=== PATIENT | female | born 1965 | race Caucasian/White ===

== ENCOUNTER 2021-12-22 07:49 | Outpatient (REF) | payer BC, SELFPAY ==
[2021-12-22 11:47] LABS: Hematocrit 43.9 % (37.0-47.0); Hemoglobin 14.3 g/dl (12.0-16.0); Mean Corpuscular HGB Conc 32.6 g/dl (31.0-35.0); Mean Corpuscular Hemoglobin 30.7 pg (27.0-33.0); Mean Corpuscular Volume 94.2 fL (80.0-98.0); Mean Platelet Volume 9.8 fL (9.4-12.3); Platelet Count 319 X10*3/uL (160-400); Red Blood Count 4.66 X10*6/uL (4.20-5.50); Red Cell Distribution Width 12.5 % (11.0-16.0); White Blood Count 4.7 X10*3/uL (4.8-10.8)
[2021-12-22 11:51] LABS: Alanine Aminotransferase 18 U/L (0-31); Albumin Level 4.2 g/dL (3.5-5.0); Alkaline Phosphatase 83 U/L (39-117); Anion Gap 12 (12-20); Aspartate Amino Transferase 17 U/L (5-31); Bilirubin Total 1.1 mg/dL (0.0-1.0); Blood Urea Nitrogen 14 mg/dL (9-16); Calcium 9.7 mg/dL (8.4-10.2); Carbon Dioxide 30 mmol/L (22-29); Chloride 103 mmol/L (96-108); Cholesterol 222 mg/dL; Estimated Glomerular Filt Rate > 60; Glucose Fasting 105 mg/dL (60-99); HDL Cholesterol 70 mg/dL; LDL Cholesterol Calculated 121 mg/dl; Potassium 4.1 mmol/L (3.3-5.1); Sodium 141 mmol/L (135-145); Total Protein 6.8 g/dL (6.5-8.0); Triglycerides 159 mg/dL
[2021-12-22 12:20] LABS: Thyroid Stimulating Hormone 1.32 uIU/mL (0.32-4.0); Vitamin D 25-OH Total 30.9 ng/mL (>30)
== END 2021-12-22 07:50 | disposition home or self-care (01) ==
LOC: HO.MANLDS 07:49
PROVIDERS: PCP Internal Medicine; Visit Provider Internal Medicine
DX: I10 Essential (primary) hypertension (principal); E78.00 Pure hypercholesterolemia, unspecified
CPT/HCPCS: 36415; 80053; 80061; 82306; 84443; 85027

== ENCOUNTER → 2022-02-27 10:18 | Outpatient (REF) | payer BC, SELFPAY ==
--- NOTE | 2022-02-27 10:21 | CA_ITS ---
Transthoracic Echocardiogram Patient (Last, First, Middle): Alia Morrison, Gender: Female Date of : 1965 Age: 56 Procedure Date: 02/27/2022 Procedure Type: Transthoracic Echocardiogram Location: [facility] Height: 167.64 cm Weight: 108.41 kg BSA: 2.16 m2 Heart Rate: bpm BP: 130 / 85 mmHg Routing Equipment Tender: YR/TO Referring MD: Chavez Mojica MD Stamping Machine Operator: Gabo Ochoa MD Symptoms: R01.1 CARDIAC MURMUR Study Quality: Technically Difficult/ Contrast ECG Rhythm: Sinus Conclusions: - 1. Technically limited study despite use of contrast agent 2. Normal LV systolic function with grade 1 diastolic dysfunction 3. Mild aortic stenosis Findings Procedure Information Contrast agent, definity, is being given per protocol without apparent complications. Left Ventricle Normal left ventricular size, thickness, and systolic function. The visually estimated ejection fraction is between 60-65%. Spectral Doppler is indicative of an impaired relaxation filling pattern. E/E prime ratio is <8, consistent with normal filling pressures. Evidence suggests grade I (mild) diastolic dysfunction. Right Ventricle Normal right ventricular cavity size. Atria The left atrium is normal in size. Interatrial shunt cannot be excluded. The right atrium was not well visualized. Aortic Valve The aortic valve was not well visualized. There is mild calcification of the aortic valve. There is mild aortic valve stenosis. The mean gradient is 11 mmHg. The aortic valve area is 1.61 cm2. There is no aortic valve regurgitation. Mitral Valve The mitral valve was not well visualized. There is trace mitral valve regurgitation. There is no mitral valve stenosis. Pulmonic Valve The pulmonic valve was not well visualized. Tricuspid Valve The tricuspid valve was not well visualized. Tricuspid regurgitation envelope is inadequate for calculation of right ventricular systolic pressure. Great Vessels The aorta was not well visualized. The pulmonary artery was not well visualized. Venous The inferior vena cava is normal in size and collapses greater than 50% with inspiration. Pericardium/Pleural The pericardium was not well visualized. Prior Study Comparison No prior study available for comparison. Measurements 2D Linear Measurements IVSd: 0.86 0.6-0.9/0.6-1.0 cm LVIDd: 4.92 3.9-5.3/4.2-5.9 cm LVIDd Index: 2.28 2.4-3.2/2.2-3.1 cm/m2 LVIDs: 2.86 2.0-3.6 cm LVPWd: 0.82 0.7-1.1 cm LA Diam: 3.60 2.7-3.8/3.0-4.0 cm LAIDs Index: 1.67 1.5-2.3 cm/m2 LV Mass: 175.14 67-162/88-224 g LV Mass Index: 81.08 43-95/49-115 g/m2 LVOT Diam: 2.00 3.0+(-)1.3 cm 2D Systolic Function EF 4C: 62.90 >55% EF 2C: 61.80 >55% EF BiP: 61.80 >55% Mitral Valve MV Pk E: 0.67 MV PK A: 0.75 MV Decel Time: 258.00 E/A: 0.90 E'Lateral: 6.74 E'Medial: 7.29 E/E' Med: 9.10 E/E' Lat: 9.90 PHT: 76.00 MVA PHT: 2.89 Decel Edmonson: 2.58 Aortic Valve AoV Pk Mitchell: 2.25 AoV Mn Mitchell: 1.59 AoV VTI: 0.47 AoV Pk Grad: 20.00 Aov Mn Grad: 11.00 ALEJANDRINA Cont.VTI: 1.61 LVOT LVOT Pk Mitchell: 0.99 LVOT Mn Mitchell: 0.69 LVOT VTI: 0.24 LVOT Pk Grad: 4.00 LVOT Mn Grad: 2.00 LVOT Diam: 2.00 LVOT Area: 3.14 Diastolic Function MV Pk E: 0.67 MV Pk A: 0.75 E/A: 0.90 E'Medial: 7.29 E/E' Med: 9.10 E' Laterial: 6.74 E/E' Lat: 9.90 Right Ventricle TVS' Mitchell: 10.40 Tricuspid Valve RA Press: 3.00 Great Vessels Aorta Sinus of Valsalva: 3.11 2.0-3.5 cm Ao Asc: 3.30 2.1-3.4 cm Ao Arch: 3.00 Updated in Other Vendor System with Status of Final Gabo Ochoa MD electronically signed on 03/01/2022 1:01:52 PM with status of Final
== END ==
LOC: HO.CARD 10:18
PROVIDERS: Visit Provider Internal Medicine
DX: R01.1 Cardiac murmur, unspecified (principal)
CPT/HCPCS: 93306; Q9957

== ENCOUNTER 2022-04-15 12:45 | Outpatient (REF) | payer OTHER, SELFPAY ==
--- NOTE | ~2022-04-15 | MM_ITS ---
EXAMINATION: MM SCREENING DIGITAL BREAST TOMOSYNTHESIS, BILATERAL CLINICAL INFORMATION: Screening. Asymptomatic. Prior ehg-hv-mizvy mammography currently unavailable. The lifetime risk of breast cancer based on the Tyrer-Cuzick Model is 8%. COMPARISON: None. Radiology department will attempt to retrieve prior [id number]-wu-swhej exam to allow for comparison in an addendum report. TECHNIQUE: Digital mammography is performed in craniocaudal and mediolateral oblique views along with computer-aided detection (CAD). Digital breast tomosynthesis is performed in implant-displaced craniocaudal and implant-displaced mediolateral oblique views along with computer-aided detection (CAD). Synthesized 2D images are generated from the tomosynthesis. FINDINGS: There are scattered areas of fibroglandular density (ACR BI-RADS breast composition Category b). There are bilateral implants. The implant margins are smooth. Breast tissue composition borders on predominantly fatty. There is no significant mass or architectural abnormality or abnormal calcifications. The axilla and skin contours are unremarkable. MM/MM tomosynthesis screen imp BI IMPRESSION: No mammographic evidence of malignancy. ASSESSMENT: BI-RADS 1: Negative RECOMMENDATION: Routine annual mammography screening. This patient's information was entered into a reminder system with a target due date for their next mammogram.
== END 2022-04-15 12:46 | disposition home or self-care (01) ==
LOC: HO.MAMMO 12:45
PROVIDERS: PCP Internal Medicine; Visit Provider Internal Medicine
DX: Z12.31 Encounter for screening mammogram for malignant neoplasm of breast (principal)
CPT/HCPCS: 77063; 77067

== ENCOUNTER 2022-08-01 21:05 | Emergency (ER) | payer OTHER, SELFPAY ==
[2022-08-01 21:15] VITALS: BP 155/93; PULSE 80; RESP 18; TEMP 36.1; O2SAT 97; BMI 40.3
--- NOTE | 2022-08-01 21:21 | ECG_ITS ---
Test Reason : CHEST PAIN Blood Pressure : / mmHG Vent. Rate : 070 BPM Atrial Rate : 070 BPM P-R Int : 182 ms QRS Dur : 100 ms QT Int : 420 ms P-R-T Axes : 033 -21 020 degrees QTc Int : 453 ms Normal sinus rhythm late transition in v6 Intra-ventricular conduction delay Borderline ECG No previous ECGs available Referred By: Generic ED Physician Electronically Signed By:AVERY VASQUEZ MD
[2022-08-01 21:34] LABS: MANUAL DIFF FLAG NO
[2022-08-01 21:36] LABS: Basophils Percent Auto 0.5 % (0-2); Eosinophils Absolute Auto 0.1 X10*3/uL (0.0-0.4); Eosinophils Percent Auto 1.6 % (0-4); Hematocrit 42.6 % (37.0-47.0); Imm Gran Abs Auto 0.02 X10*3/uL (0.00-0.03); Imm Gran Pct Auto 0.3 % (0.0-0.4); Lymphocytes Absolute Auto 2.7 X10*3/uL (1.2-4.9); Lymphocytes Percent Auto 36.6 % (20-40); Mean Corpuscular HGB Conc 32.9 g/dl (31.0-35.0); Mean Corpuscular Hemoglobin 30.7 pg (27.0-33.0); Mean Corpuscular Volume 93.4 fL (80.0-98.0); Mean Platelet Volume 9.6 fL (9.4-12.3); Monocytes Absolute Auto 0.5 X10*3/uL (0.1-1.2); Monocytes Percent Auto 6.8 % (2-11); Neutrophils Percent Auto 54.2 % (45-73); Platelet Count 315 X10*3/uL (160-400); Red Blood Count 4.56 X10*6/uL (4.20-5.50); Red Cell Distribution Width 12.3 % (11.0-16.0); White Blood Count 7.5 X10*3/uL (4.8-10.8)
[2022-08-01 21:55] LABS: Alanine Aminotransferase 19 U/L (0-31); Albumin Level 4.4 g/dL (3.5-5.0); Alkaline Phosphatase 75 U/L (39-117); Anion Gap 16 (12-20); Aspartate Amino Transferase 18 U/L (5-31); Bilirubin Total 0.3 mg/dL (0.0-1.0); Blood Urea Nitrogen 26 mg/dL (9-16); Calcium 9.5 mg/dL (8.4-10.2); Carbon Dioxide 26 mmol/L (22-29); Chloride 101 mmol/L (96-108); Creatinine Clr Calc Pharmacy 101.7; Estimated Glomerular Filt Rate > 60; Glucose Random 111 mg/dL (60-115); Potassium 3.8 mmol/L (3.3-5.1); Sodium 139 mmol/L (135-145); Total Protein 6.8 g/dL (6.5-8.0)
[2022-08-01 21:58] LABS: Troponin-I High Sensitivity < 3.5 ng/L (<3.5-17.0)
[2022-08-02 00:11] VITALS: BP 136/73; PULSE 66; RESP 19; TEMP 36.7; O2SAT 97
--- NOTE | 2022-08-02 00:27 | ED.CHESTPAIN ---
HPI - Chest Pain General Chief Complaint: Chest Pain Stated Complaint: chest pain, high BP Time Seen by Provider: 08/01/22 23:41 Source: patient and family Mode of arrival: ambulatory History of Present Illness HPI narrative: 56-year-old female with history of hypertension and hyperlipidemia presents with onset of midsternal chest pain that radiated across her left chest and was rated as a 6/10, lasted 10 minutes and was not associated with any dizziness, diaphoresis, nausea, shortness of breath. Patient states she did receive an annoying e-mail and that she had finished eating approximally 30 minutes prior to the onset. She then took her blood pressure and noted that it was elevated. Patient also reports that she has had recent travel via airplane but denies any calf swelling or cigarette smoking. Patient is currently chest pain-free. Related Data Allergies Allergy/AdvReac Type Severity Reaction Status Date / Time No Known Allergies Allergy Verified 08/01/22 21:20 Review of Systems Review of Systems: Pertinent positives and negatives as stated in HPI 10 point review of systems otherwise negative. [facility] Past Medical History Source: nursing notes reviewed Social History Social History Advance Directives: No Advance Directives Information Provided: No Physical Exam Vital Signs: Vital Signs: Last Vital Signs Temp 98.0 F 08/02/22 00:11 Pulse 66 08/02/22 00:11 Resp 19 08/02/22 00:11 BP 136/73 08/02/22 00:11 Pulse Ox 97 08/02/22 00:11 O2 Del Method 08/02/22 00:11 BMI result Body Mass Index 40.3 VITAL SIGNS: Reviewed. GENERAL: Well developed, well nourished, in no acute distress. HEAD: Normocephalic/atraumatic EYES: PERRLA, EOMI EARS: Ext canals without abnormality OROPHARYNX: no oral lesions noted, posterior pharynx clear LUNGS: Normal breath sounds. No adventitious sounds or accessory muscle use. SpO2<97> CARDIOVASCULAR: Regular rate and rhythm without noted murmurs, no JVD or lower extremity edema. ABDOMEN: Soft, non-tender, non-distended with bowel sounds. MUSCULOSKELETAL: No tenderness, deformities, or effusions noted on gross inspection. EXTREMITIES: No cyanosis, clubbing or edema. SKIN: Inspection of the skin reveals no rashes NEUROLOGIC: Alert and oriented x 4. Strength and sensation to light touch were grossly intact x 4. Course Course Course Narrative: 56-year-old female with history and clinical presentation suggestive of possible ACS although she is asymptomatic at this time and has had a recent cardiac workup that included stress test and echocardiogram. On review of all investigations there are no acute findings but will obtain 2nd troponin, D-dimer, as well as COVID-19 testing. Low clinical suspicion for any gastritis/cholecystitis/pancreatitis. HEART Score: 3 On review investigations, that include serial troponins/D-dimer/COVID-19 testing there are no acute findings to better explain patient's symptoms. She was informed all results and she understands that she should follow-up with her primary care doctor as well as her consumer science teacher. She is otherwise discharged home in stable condition, continues to be asymptomatic for chest pain and otherwise hemodynamically stable. MDM - Chest Pain Lab Data Result diagrams: 08/01/22 21:30 08/01/22 21:30 Labs: Lab Results 08/01/22 08/01/22 08/01/22 Range/Units 21:30 21:30 21:30 WBC 7.5 (4.8-10.8) X10*3/uL RBC 4.56 (4.20-5.50) X10*6/uL Hgb 14.0 (12.0-16.0) g/dl Hct 42.6 (37.0-47.0) % MCV 93.4 (80.0-98.0) fL MCH 30.7 (27.0-33.0) pg MCHC 32.9 (31.0-35.0) g/dl RDW 12.3 (11.0-16.0) % Plt Count 315 (160-400) X10*3/uL MPV 9.6 (9.4-12.3) fL Immature Gran % (Auto) 0.3 (0.0-0.4) % Neut % (Auto) 54.2 (45-73) % Lymph % (Auto) 36.6 (20-40) % [place] % (Auto) 6.8 (2-11) % Eos % (Auto) 1.6 (0-4) % Baso % (Auto) 0.5 (0-2) % Lymph # (Auto) 2.7 (1.2-4.9) X10*3/uL [place] # (Auto) 0.5 (0.1-1.2) X10*3/uL Eos # (Auto) 0.1 (0.0-0.4) X10*3/uL Baso # (Auto) 0.0 (0.0-0.2) X10*3/uL Abs Immat Gran (auto) 0.02 (0.00-0.03) X10*3/uL Absolute Neuts (auto) 4.0 (2.0-8.3) x10*3/uL Absolute Nucleated RBC 0.000 (0.0-0.012) X10*3/uL Nucleated RBC % (auto) 0.0 (0.0-0.2) /100WBC D-Dimer High Sensitivty NG/ML Sodium 139 (135-145) mmol/L Potassium 3.8 (3.3-5.1) mmol/L Chloride 101 (96-108) mmol/L Carbon Dioxide 26 (22-29) mmol/L Anion Gap 16 (12-20) BUN 26 H D (9-16) mg/dL Creatinine 0.77 (0.5-1.4) mg/dL Estim Creat Clear Calc 101.7 Estimated GFR > 60 Random Glucose 111 (60-115) mg/dL Calcium 9.5 (8.4-10.2) mg/dL Total Bilirubin 0.3 (0.0-1.0) mg/dL AST 18 (5-31) U/L ALT 19 (0-31) U/L Alkaline Phosphatase 75 (39-117) U/L Troponin I High Sens < 3.5 (<3.5-17.0) ng/L Total Protein 6.8 (6.5-8.0) g/dL Albumin 4.4 (3.5-5.0) g/dL COVID-19 (YVES) (Negative) COVID-19 Clin Com 08/02/22 08/02/22 08/02/22 Range/Units 00:30 00:30 00:30 WBC (4.8-10.8) X10*3/uL RBC (4.20-5.50) X10*6/uL Hgb (12.0-16.0) g/dl Hct (37.0-47.0) % MCV (80.0-98.0) fL MCH (27.0-33.0) pg MCHC (31.0-35.0) g/dl RDW (11.0-16.0) % Plt Count (160-400) X10*3/uL MPV (9.4-12.3) fL Immature Gran % (Auto) (0.0-0.4) % Neut % (Auto) (45-73) % Lymph % (Auto) (20-40) % [place] % (Auto) (2-11) % Eos % (Auto) (0-4) % Baso % (Auto) (0-2) % Lymph # (Auto) (1.2-4.9) X10*3/uL [place] # (Auto) (0.1-1.2) X10*3/uL Eos # (Auto) (0.0-0.4) X10*3/uL Baso # (Auto) (0.0-0.2) X10*3/uL Abs Immat Gran (auto) (0.00-0.03) X10*3/uL Absolute Neuts (auto) (2.0-8.3) x10*3/uL Absolute Nucleated RBC (0.0-0.012) X10*3/uL Nucleated RBC % (auto) (0.0-0.2) /100WBC D-Dimer High Sensitivty < 150 NG/ML Sodium (135-145) mmol/L Potassium (3.3-5.1) mmol/L Chloride (96-108) mmol/L Carbon Dioxide (22-29) mmol/L Anion Gap (12-20) BUN (9-16) mg/dL Creatinine (0.5-1.4) mg/dL Estim Creat Clear Calc Estimated GFR Random Glucose (60-115) mg/dL Calcium (8.4-10.2) mg/dL Total Bilirubin (0.0-1.0) mg/dL AST (5-31) U/L ALT (0-31) U/L Alkaline Phosphatase (39-117) U/L Troponin I High Sens < 3.5 (<3.5-17.0) ng/L Total Protein (6.5-8.0) g/dL Albumin (3.5-5.0) g/dL COVID-19 (YVES) Negative (Negative) COVID-19 Clin Com See Note Discharge Plan Discharge Clinical Impression: Chest pain Patient Disposition: Home, Self-Care Instructions: Chest Pain (ED) Additional Instructions: 1. Resume all home medications as prescribed. 2. Please call the office of your primary care provider and consumer science teacher tomorrow morning/this morning to set up an appointment for re-evaluation further outpatient management. Return to the ER for worsening symptoms. Referrals: Chavez Mojica MD [Primary Care Provider] -
[2022-08-02 00:49] LABS: D Dimer High Sensitivity < 150 NG/ML
[2022-08-02 00:51] LABS: COVID-19 Test Negative (Negative); IDNOW Serial# 16C4AD1C
[2022-08-02 00:56] LABS: Troponin-I High Sensitivity < 3.5 ng/L (<3.5-17.0)
== END 2022-08-02 01:37 | disposition home or self-care (01) ==
PROVIDERS: Emergency Provider Student in an Organized Health Care Education/Training Program; PCP Internal Medicine
DX: R07.89 Other chest pain (principal); Z20.822 Contact with and (suspected) exposure to COVID-19; Z79.899 Other long term (current) drug therapy
CPT/HCPCS: 36415; 80053; 84484; 85025; 85379; 87635; 93005; 99283

== ENCOUNTER 2022-10-15 08:04 | Outpatient (REF) | payer OTHER, SELFPAY ==
[2022-10-15 11:23] LABS: MANUAL DIFF FLAG NO
[2022-10-15 11:28] LABS: Basophils Percent Auto 0.6 % (0-2); Eosinophils Absolute Auto 0.1 X10*3/uL (0.0-0.4); Eosinophils Percent Auto 2.5 % (0-4); Hematocrit 41.1 % (37.0-47.0); Hemoglobin 13.4 g/dl (12.0-16.0); Imm Gran Abs Auto 0.01 X10*3/uL (0.00-0.03); Imm Gran Pct Auto 0.2 % (0.0-0.4); Lymphocytes Absolute Auto 1.7 X10*3/uL (1.2-4.9); Lymphocytes Percent Auto 34.8 % (20-40); Mean Corpuscular HGB Conc 32.6 g/dl (31.0-35.0); Mean Corpuscular Hemoglobin 30.4 pg (27.0-33.0); Mean Corpuscular Volume 93.2 fL (80.0-98.0); Mean Platelet Volume 9.8 fL (9.4-12.3); Monocytes Absolute Auto 0.4 X10*3/uL (0.1-1.2); Monocytes Percent Auto 7.6 % (2-11); Neutrophils Absolute Auto 2.6 x10*3/uL (2.0-8.3); Neutrophils Percent Auto 54.3 % (45-73); Platelet Count 297 X10*3/uL (160-400); Red Blood Count 4.41 X10*6/uL (4.20-5.50); Red Cell Distribution Width 12.3 % (11.0-16.0); White Blood Count 4.9 X10*3/uL (4.8-10.8)
[2022-10-15 11:56] LABS: Estimated Average Glucose 108 mg/dL; Hemoglobin A1c % 5.4 %
[2022-10-15 12:21] LABS: Alanine Aminotransferase 19 U/L (0-31); Albumin Level 3.8 g/dL (3.5-5.0); Alkaline Phosphatase 80 U/L (39-117); Anion Gap 10 (12-20); Aspartate Amino Transferase 17 U/L (5-31); Bilirubin Total 0.7 mg/dL (0.0-1.0); Blood Urea Nitrogen 16 mg/dL (9-16); Calcium 8.8 mg/dL (8.4-10.2); Carbon Dioxide 29 mmol/L (22-29); Chloride 105 mmol/L (96-108); Cholesterol 193 mg/dL; Estimated Glomerular Filt Rate > 60; Glucose Random 101 mg/dL (60-115); HDL Cholesterol 59 mg/dL; LDL Cholesterol Calculated 111 mg/dl; Potassium 4.1 mmol/L (3.3-5.1); Sodium 140 mmol/L (135-145); Triglycerides 116 mg/dL
[2022-10-15 12:44] LABS: Free T4 (Free Thyroxine) 0.88 ng/dL (0.71-1.85); Thyroid Stimulating Hormone 1.21 uIU/mL (0.32-4.0); Vitamin D 25-OH Total 29.6 ng/mL (>30)
== END 2022-10-15 08:05 | disposition home or self-care (01) ==
LOC: HO.MANLDS 08:04
PROVIDERS: Visit Provider Physician Assistant
DX: R73.01 Impaired fasting glucose (principal); E55.9 Vitamin D deficiency, unspecified; R53.83 Other fatigue
CPT/HCPCS: 36415; 80053; 80061; 82306; 83036; 84439; 84443; 85025

== ENCOUNTER 2023-01-04 07:46 | Outpatient (REF) | payer OTHER, SELFPAY ==
[2023-01-04 11:17] LABS: MANUAL DIFF FLAG NO
[2023-01-04 11:47] LABS: Basophils Percent Auto 0.5 % (0-2); Eosinophils Absolute Auto 0.1 X10*3/uL (0.0-0.4); Eosinophils Percent Auto 1.4 % (0-4); Hematocrit 42.3 % (37.0-47.0); Hemoglobin 13.7 g/dl (12.0-16.0); Imm Gran Abs Auto 0.02 X10*3/uL (0.00-0.03); Imm Gran Pct Auto 0.4 % (0.0-0.4); Lymphocytes Absolute Auto 1.9 X10*3/uL (1.2-4.9); Lymphocytes Percent Auto 33.8 % (20-40); Mean Corpuscular HGB Conc 32.4 g/dl (31.0-35.0); Mean Corpuscular Volume 92.6 fL (80.0-98.0); Monocytes Absolute Auto 0.4 X10*3/uL (0.1-1.2); Monocytes Percent Auto 6.9 % (2-11); Neutrophils Absolute Auto 3.2 x10*3/uL (2.0-8.3); Platelet Count 325 X10*3/uL (160-400); Red Blood Count 4.57 X10*6/uL (4.20-5.50); Red Cell Distribution Width 12.4 % (11.0-16.0); White Blood Count 5.5 X10*3/uL (4.8-10.8)
[2023-01-04 12:44] LABS: Alanine Aminotransferase 15 U/L (0-31); Alkaline Phosphatase 71 U/L (39-117); Anion Gap 11 (12-20); Aspartate Amino Transferase 15 U/L (5-31); Bilirubin Total 0.9 mg/dL (0.0-1.0); Blood Urea Nitrogen 19 mg/dL (9-16); Calcium 9.2 mg/dL (8.4-10.2); Carbon Dioxide 30 mmol/L (22-29); Chloride 100 mmol/L (96-108); Cholesterol 167 mg/dL; Estimated Glomerular Filt Rate > 60; Glucose Fasting 94 mg/dL (60-99); HDL Cholesterol 56 mg/dL; LDL Cholesterol Calculated 87 mg/dl; Potassium 3.4 mmol/L (3.3-5.1); Sodium 138 mmol/L (135-145); Total Protein 6.4 g/dL (6.5-8.0); Triglycerides 124 mg/dL
[2023-01-04 12:49] LABS: Vitamin D 25-OH Total 43.9 ng/mL (>30)
== END 2023-01-04 07:47 | disposition home or self-care (01) ==
LOC: HO.MANLDS 07:46
PROVIDERS: Visit Provider Physician Assistant
DX: E78.00 Pure hypercholesterolemia, unspecified (principal); Z87.898 Personal history of other specified conditions
CPT/HCPCS: 36415; 80053; 80061; 82306; 85025

== ENCOUNTER 2023-06-14 07:33 | Outpatient (REF) | payer BC, SELFPAY ==
[2023-06-14 13:44] LABS: MANUAL DIFF FLAG NO
[2023-06-14 13:45] LABS: Basophils Percent Auto 0.6 % (0-2); Eosinophils Absolute Auto 0.1 X10*3/uL (0.0-0.4); Eosinophils Percent Auto 1.1 % (0-4); Hematocrit 43.2 % (37.0-47.0); Hemoglobin 14.2 g/dl (12.0-16.0); Imm Gran Abs Auto 0.01 X10*3/uL (0.00-0.03); Imm Gran Pct Auto 0.2 % (0.0-0.4); Lymphocytes Absolute Auto 1.6 X10*3/uL (1.2-4.9); Lymphocytes Percent Auto 29.2 % (20-40); Mean Corpuscular HGB Conc 32.9 g/dl (31.0-35.0); Mean Corpuscular Hemoglobin 30.6 pg (27.0-33.0); Mean Corpuscular Volume 93.1 fL (80.0-98.0); Mean Platelet Volume 9.6 fL (9.4-12.3); Monocytes Absolute Auto 0.4 X10*3/uL (0.1-1.2); Monocytes Percent Auto 7.3 % (2-11); Neutrophils Absolute Auto 3.4 x10*3/uL (2.0-8.3); Neutrophils Percent Auto 61.6 % (45-73); Platelet Count 330 X10*3/uL (160-400); Red Blood Count 4.64 X10*6/uL (4.20-5.50); Red Cell Distribution Width 12.3 % (11.0-16.0); White Blood Count 5.5 X10*3/uL (4.8-10.8)
[2023-06-14 14:13] LABS: Estimated Average Glucose 100 mg/dL; Hemoglobin A1c % 5.1 % (<6.0)
[2023-06-14 14:18] LABS: Alanine Aminotransferase 14 U/L (0-31); Albumin Level 4.1 g/dL (3.5-5.0); Alkaline Phosphatase 68 U/L (39-117); Anion Gap 11 (12-20); Aspartate Amino Transferase 15 U/L (5-31); Bilirubin Total 1.1 mg/dL (0.0-1.0); Blood Urea Nitrogen 15 mg/dL (9-16); Calcium 9.9 mg/dL (8.4-10.2); Carbon Dioxide 30 mmol/L (22-29); Chloride 100 mmol/L (96-108); Cholesterol 187 mg/dL (<200); Estimated Glomerular Filt Rate > 60; Glucose Random 82 mg/dL (60-115); HDL Cholesterol 59 mg/dL (>40); LDL Cholesterol Calculated 102 mg/dL (<100); Potassium 3.4 mmol/L (3.3-5.1); Sodium 138 mmol/L (135-145); Total Protein 6.9 g/dL (6.5-8.0); Triglycerides 131 mg/dL (<150)
[2023-06-14 14:24] LABS: Vitamin D 25-OH Total 64.3 ng/mL (>30)
== END 2023-06-14 07:34 | disposition home or self-care (01) ==
LOC: HO.MANLDS 07:33
PROVIDERS: Visit Provider Physician Assistant
DX: E78.2 Mixed hyperlipidemia (principal); E11.9 Type 2 diabetes mellitus without complications; E55.9 Vitamin D deficiency, unspecified
CPT/HCPCS: 36415; 80053; 80061; 82306; 83036; 85025

== ENCOUNTER 2023-07-16 09:11 | Outpatient (REF) | payer BC, SELFPAY ==
--- NOTE | ~2023-07-16 | MM_ITS ---
EXAMINATION: MM SCREENING DIGITAL BREAST TOMOSYNTHESIS, BILATERAL WITH BILATERAL IMPLANTS CLINICAL INFORMATION: Screening. Asymptomatic. The patient has had prior cosmetic breast surgery with bilateral, retropectoral silicone implant augmentation. COMPARISON: Mammography: This study is compared with the prior exams dating back to 2018. TECHNIQUE: Digital mammography is performed in craniocaudal and mediolateral oblique views along with computer-aided detection (CAD). Digital breast tomosynthesis is performed in implant-displaced craniocaudal and implant-displaced mediolateral oblique views along with computer-aided detection (CAD). Synthesized 2D images are generated from the tomosynthesis. FINDINGS: The breasts are almost entirely fatty (ACR BI-RADS breast composition Category a). There are mammographically intact, bilateral, retropectoral silicone breast implants. There are no significant masses, abnormal calcifications, or other abnormalities. MM/MM tomosynthesis screen imp BI IMPRESSION: No mammographic evidence of malignancy. ASSESSMENT: BI-RADS BI-RADS 1 - Negative RECOMMENDATION: Routine annual mammography screening. 1 year F/U This patient's information was entered into a reminder system with a target due date for their next mammogram.
== END 2023-07-16 09:12 | disposition home or self-care (01) ==
LOC: HO.MAMMO 09:11
PROVIDERS: PCP Physician Assistant; Visit Provider Physician Assistant
DX: Z12.31 Encounter for screening mammogram for malignant neoplasm of breast (principal)
CPT/HCPCS: 77063; 77067

== ENCOUNTER → 2023-07-16 09:15 | Outpatient (BNV) | payer BC, SELFPAY | PROVIDERS: PCP Physician Assistant; Visit Provider Radiology Diagnostic Radiology | DX: Z12.31 Encounter for screening mammogram for malignant neoplasm of breast (principal) | CPT/HCPCS: 77063; 77067 ==

== ENCOUNTER 2024-07-19 12:52 | Outpatient (REF) | payer BC, SELFPAY ==
--- NOTE | ~2024-07-19 | MM_ITS ---
EXAMINATION: MM SCREENING DIGITAL BREAST TOMOSYNTHESIS, BILATERAL CLINICAL INFORMATION: Screening. Asymptomatic. COMPARISON: Mammography: Comparison is made with relevant avialable priors. TECHNIQUE: Digital mammography is performed in craniocaudal and mediolateral oblique views along with computer-aided detection (CAD). Digital breast tomosynthesis is performed in implant-displaced craniocaudal and implant-displaced mediolateral oblique views along with computer-aided detection (CAD). FINDINGS: There are scattered areas of fibroglandular density (ACR BI-RADS breast composition Category b). Bilateral retropectoral implants are stable appearing. There are no significant masses, abnormal calcifications, or other abnormalities. MM/MM tomosynthesis screen imp BI IMPRESSION: There are no significant changes from prior study. ASSESSMENT: BI-RADS BI-RADS 2 - Benign Findings RECOMMENDATION: Routine annual mammography screening. 1 year F/U This patient's information was entered into a reminder system with a target due date for their next mammogram. Electronically signed by: Bettie Kay DO 08/01/2024 11:58 AM EDT
== END 2024-07-19 12:53 | disposition home or self-care (01) ==
LOC: HO.MAMMO 12:52
PROVIDERS: PCP Family Medicine; Visit Provider Family Medicine
DX: Z12.31 Encounter for screening mammogram for malignant neoplasm of breast (principal)
CPT/HCPCS: 77063; 77067

== ENCOUNTER → 2024-07-19 13:15 | Outpatient (BNV) | payer BC, SELFPAY | PROVIDERS: PCP Family Medicine; Visit Provider Internal Medicine | DX: Z12.31 Encounter for screening mammogram for malignant neoplasm of breast (principal) | CPT/HCPCS: 77063; 77067 ==

== ENCOUNTER 2025-09-18 12:15 | Outpatient (REF) | payer BC, SELFPAY ==
--- OUTSIDE RECORDS SUMMARY | 2024-08-16 11:05 | XMS_ITS | Encounter Summary ---
Author Organization [facility] [place] [address] Care Team Providers Care Network Program Manager Name Role Phone Micheal Fitzpatrick MD Primary Care Provider Encounter Details Date Type Department Care Team (Late st Contact Info) Description 08/16/2024 12:05 PM EDT Hospital Encounter TH HISTORIC ENCOUNTERS EASTERN CONVERSION ONLY Duong Adam MD [address] [place] [address] Social History Tobacco Use Types Packs/Day Years Used Date Smoking Tobacco: Never Smokeless Tobacco: Never Alcohol Use Standard Drinks/Week Comments Yes 0 (1 standard drink = 0.6 oz pur e alcohol) Comments Unknown Sex and Gender Information Value Date Recorded Sex Assigned at Not on file Legal Sex Female 6:52 PM EDT Gender Identity Not on file Sexual Orientation Not on file documented as of this encounter Last Filed Vital Signs Vital Sign Reading Time Taken Comments Blood Pressure 122/78 08/16/2024 12:37 PM EDT Pulse 87 08/16/2024 12:37 PM EDT Temperature - - Respiratory Rate - - Oxygen Saturation - - Inhaled Oxygen Concentration - - Weight 90.7 kg (200 lb) 08/16/2024 12:37 PM EDT Height 167.6 cm (5' 6 ) 08/16/2024 12:37 PM EDT Body Mass Index 32.28 08/16/2024 12:37 PM EDT documented in this encounter Progress Notes * Duong Adam MD - 08/16/2024 12:45 PM EDT Images from the original note were not included. Progress Notes by Duong Adam MD at 08/16/2024 12:45 PM Author: Duong Adam MD Service: -- Author Type: Physician Filed: 08/16/2024 1:42 PM Encounter Date: 08/16/2024 Status: Signed Fastener Technologist: Duong Adam MD (Physician) SUBJECTIVE: The patient comes in for a follow-up for my apologies Hernandez I usually try to do it within the room with the patient very rarely happens. Recently had only 1 I think please much more sensitive who is working hard on losing weight managing risk factors for coronary artery disease and has no symptoms of exertional chest discomfort. Patient denies any symptoms of PND, orthopnea, palpitations, syncope, presyncopal symptoms, pedal edema or claudication. Patient's past med history significant for hypertension, hyperlipidemia, obesity, gestational diabetes, COVID infection, coronary calcifications, systolic heart murmur, aortic valve stenosis, herpes labialis and abnormal Pap smear. Patient's family history significant for congestive heart failure, hypertension, diabetes, pancreatic cancer, prostate cancer, lymphoma and mesothelioma. Patient past surgical history significant for right rotator cuff tendinitis and hammertoe of right foot. OBJECTIVE: Vitals: height is 5' 6 (1.676 m) and weight is 90.7 kg (200 lb). Her blood pressure is 122/78 and her pulse is 87. Her oxygen saturation is 96%. Body mass index is 32.28 kg/m??. Filed Weights 08/16/24 1237 Weight: 90.7 kg (200 lb) Admission Weight: Review of system: ?Cardiovascular ?Neurological ? - + [x] [] Chest Discomfort [x] [] Palpitations [x] [] Fainting [] [x] High Blood Pressure [] [x] Shortness of Breath [] [x] Cholesterol [x] [] Orthopnea or PND [x] [] Edema - + [x] [] Numbness [x] [] Visual Disturbance [x] [] Weakness [x] [] Vertigo [x] [] Sleep Disorder [x] [] Speech [x] [] Seizure - + [] [] Impotence [] [] Urinary Frequency [] [] Incontinence [] [] Menstrual Irregularity [] [] Bloody Urine [] [] Painful Urination ?Respiratory ?Musculoskeletal ?GI - + [x] [] Cough [x] [] Hemoptysis [x] [] Difficulty Breathing [x] [] Pleuritic Pain [x] [] Fever [x] [] Wheezing - + [] [x] Swollen or Painful Joints [x] [] Claudication [x] [] Edema [x] [] Myalgia [x] [] Injury - + [] [] Indigestion [] [] Pain [] [] Bloody Stools [] [] Constipation [] [] Diarrhea ?Eyes ?E-N-T ?Endocrine - + [x] [] Blurred Vision [x] [] Double Vision [x] [] Amaurosis - + [x] [] Nose Bleed [x] [] Difficulty Swallowing [x] [] Difficulty Hearing [x] [] Tinnitus - + [] [] Diabetes [] [] Weight Gain [] [] Weight Loss [] [] Hyperthyroid ?Head ?Neck ?Skin - + [x] [] Jaw Pain [x] [] Headache [x] [] Injury - + [x] [] Swelling [x] [] Pain - + [] [] Rash [] [] Itching [] [] Bruising ?Psychiatric ?Allergies - + [x] [] Depression [x] [] Anxiety - + [] [] Environmental [] [] Drug [] No Change since 08/19/2014 Comments: [] Past Medical History Reviewed: Past Medical History: Diagnosis Date ? Aortic valve stenosis ? Diabetes mellitus, type II (HCC) ? Gestational diabetes ? Heart murmur, systolic ? Herpes labialis ? Hyperlipidemia ? Hypertension ? Obesity ? Osteoarthritis ? Vitamin D deficiency Past Surgical History Reviewed: Past Surgical History: Procedure Laterality Date ? APPENDECTOMY ? CARDIAC CATHETERIZATION N/A 07/27/2024 Procedure: LEFT HEART CATHETERIZATION PCI; Surgeon: Maurilio Reza DO; Location: [facility]; Service: Cardiology; Laterality: N/A; ? CARDIAC CATHETERIZATION N/A 07/27/2024 Procedure: CORONARY ANGIOGRAPHY; Surgeon: Maurilio Reza DO; Location: [facility]; Service: Cardiology; Laterality: N/A; ? CARPAL TUNNEL RELEASE Bilateral ? COMBINED AUGMENTATION MAMMAPLASTY AND ABDOMINOPLASTY ? EXPLORATORY LAPAROTOMY Family / Social History Reviewed: No family history on file. Social History Socioeconomic History ? Marital status: Spouse name: Not on file ? Number of children: Not on file ? Years of education: Not on file ? Highest education level: Not on file Occupational History ? Not on file Tobacco Use ? Smoking status: Never ? Smokeless tobacco: Never Substance and Sexual Activity ? Alcohol use: Yes Comment: socially ? Drug use: Never ? Sexual activity: Not on file Other Topics Concern ? Not on file Social History Narrative ? Not on file Social Determinants of Health Financial Resource Strain: Not on file Food Insecurity: Not on file Transportation Needs: Not on file Social Connections: Not on file Housing Stability: Not on file Allergies Reviewed: No Known Allergies Scheduled Medications Reviewed: Current Outpatient Medications Medication Sig Dispense Refill ? aspirin EC 81 MG tablet Take 1 tablet (81 mg total) by mouth every night at bedtime. ? losartan-hydrochlorothiazide (HYZAAR) 50-12.5 MG per tablet Take 1 tablet by mouth daily. ? rosuvastatin (CRESTOR) tablet 20 mg Take 1 tablet (20 mg total) by mouth every other day. ? valACYclovir (VALTREX) 500 MG tablet Take 1 tablet (500 mg total) by mouth daily as needed. ? Wegovy 2.4 MG/0.75ML SOAJ subcutaneous auto-injector Inject 0.75 mL (2.4 mg total) under the skinonce a week. Patient stated she takes this medication on Mondays No current facility-administered medications for this visit. Physical Exam: *Eyes ?? Arcus Negative ?Xanthelasma Negative ?Lid Lag Negative ?Exopthalmus Negative ?Conjuntivae Normal ?Fundi Not examined Comments: *Ears, Nose, Mouth and Throat ?Teeth/Dentures Normal ?Mucosa: Pallor Negative ?Cyanosis Negative Comments: *Neck ?Thyroid [x] Normal [] Enlarged [] Nodules ?Jugular Veins Normal Comments: *Respiratory ?A-P Diam Normal Effort: [x] Normal Lungs Clear to auscultation and percussion Comments: *Cardiovascular ?Palpation PMI Normal Lift Negative Thrill Negative ?Auscultation Rhythm [x] Regular Murmur Negative [] S1 Normal S2 Normal S3 Negative S4 Negative Click Negative Examination of ?Carotids (R) Normal (L) Normal[] Bruits None ?Abdominal aorta Normal [] Bruits Negative [] ?Femoral (R) 4/4 (L) 4/4 Bruits Negative ?Radial arteries (R) 4/4 (L) 4/4 ?Pedal pulses DP (R) 4/4 (L) 4/4 PT (R) 4/4 (L) 4/4 ?Edema Negative Varicosities Negative Comments: *Gastrointestinal ?Examination of ?Abdomen Soft, active bowel sounds, nontender ?Liver Not palpable Spleen Not palpable ?[] Obtain Stool sample (Patients who are considered for thrombolytic and anticoagulant therapy) Comments: *Musculoskeletal ?Back: Kyphosis Negative [] Scoliosis Negative ?Gait Normal Tendons Normal ?Muscle Strength Normal Comments: *Extremities ?Nails Normal Clubbing Negative Lesions Negative Cyanosis Negative Edema Negative Comments: *Skin ?Stasis dermatitis Negative Xanthomas Negative Ulcers Negative Comments: *Neurological ?Orientation X3 DTR Normal Gait Normal ?Mood Normal [] Strength Normal Comments: Labs Reviewed: Lab Results Component Value Date WBC 5.7 07/19/2024 RBC 4.60 07/19/2024 MCV 92.5 07/19/2024 MCH 31.4 07/19/2024 MCHC 33.9 07/19/2024 RDW 12.9 07/19/2024 PLTCOUNT 308 07/19/2024 MPV 8.2 07/19/2024 NEUTROPHILS 64.2 07/19/2024 LYMPHOCYTES 28.4 07/19/2024 EOSINOPHILS 1.1 07/19/2024 BASOPHILS 0.4 07/19/2024 NEUTROPHABSO 3.7 07/19/2024 LYMPHOCYABSO 1.6 07/19/2024 MONOCYTABSOL 0.3 07/19/2024 EOSINOPHIABS 0.1 07/19/2024 BASOPHILSABS 0.0 07/19/2024 Lab Results Component Value Date BUN 19 (H) 07/19/2024 CREATININE 0.7 07/19/2024 NA 139 07/19/2024 K 4.3 07/19/2024 CL 100 07/19/2024 CO2 30 07/19/2024 CALCIUM 9.4 07/19/2024 Labs: April 2024 Cholesterol 203, HDL 63, triglycerides 144, LDL 109, hemoglobin A1c 5.5%, high- sensitivity CRP 5.1,TSH 1.59, Diagnostics Data Reviewed: EK07/25/24 Cardiac catheterization: July 27, 2024 ?? Left main: 0 ?? Left anterior descending: mid 30-40, mid diagonal 40-50 ?? Circumflex: 0 ?? Right coronary artery: prox BARTENDER. Distal vessel fills by L-R collaterals? LVEDP: 17 mmhg yes, thank you new patient what happened to her yeah already here Plan: ?? Med Rx Tests Ordered: [x ] Chem-18, lipid profile, glycohemoglobin, TSH. [x] Echocardiogram Assessment: Patient is a 58 y.o. female who had Agatston coronary score of more than thousand, has history of hypertension, mild obstructive sleep apnea, hyperlipidemia and DM type II, class II obesity, and CTA was significant for RCA more than 90% stenosis, LAD 50 to 70% stenosis, on a coronary angiogram found to have LAD mid 30 to 40%, mid diagonal 40 to 50% and BARTENDER of RCA with [id number] collaterals, clinically appears euvolemic and has no symptoms of angina or CHF. Plan: ?? Patient will be continued on current medications. ?? Chem-18, lipid file, hemoglobin A1c on annual basis and lipid profile/LFTs 90 days after change of statin dose. ?? Echocardiogram recommended in view of patient's 100% loaded RCA for evaluation of LV function. ?? I discussed with patient's goal, body mass index less than 25 kg/m??, LDL less than 70 mg/dL, blood pressure less than 120/80 mmHg and if the patient can tolerate and is not able to reduce body mass index he may benefit from CPAP. ?? Risk stratification, lifestyle modifications were discussed and recommended. ?? Patient was advised to reduce caloric intake, observe portion controlled strictly, avoid sodium and salt intake, exercise a regular basis to reduce weight for optimization of BMI for cardiovascular preventive purposes. Patient was encouraged to increase high-fiber diet with increase intake of fruits and vegetables, olive oil, beans, nuts, legumes as tolerated unless contraindicated in in the diet and avoid processed food/carbonated beverages for preventive purposes. ?? Patient was advised to call us to check on his blood work-up or other diagnostic studies if not hear back from us to discuss the results and findings and plan of care. ?? Follow-up in 4-6 months or earlier if patient develops new symptoms or current symptoms get worse. ?? All questions answered up to patient's satisfaction and explained extensively with drawing pictures. ?? Further recommendation per evaluation of diagnostic studies. Duong Adam MD, FACC., FASNC., FCPS., FACP. [facility], [facility] [phone]. 12:07 PM EDT1 This dictation was performed using voice recognition software. Word substitution may have occurred and may have gone unnoticed and uncorrected. documented in this encounter Plan of Treatment Not on file documented as of this encounter Visit Diagnoses Not on filedocumented in this encounter Care Teams Network Program Manager Relationship Specialty Start Date End Date Micheal Fitzpatrick MD PCP - General 07/30/24 documented as of this encounter
--- NOTE | ~2025-09-18 | MM_ITS ---
EXAMINATION: MM SCREENING DIGITAL BREAST TOMOSYNTHESIS, BILATERAL CLINICAL INFORMATION: Screening. Asymptomatic. COMPARISON: Comparison made to multiple prior, most recent July 19, 2024, and most remote May 29, 2020. TECHNIQUE: Digital breast tomosynthesis is performed in mediolateral oblique and craniocaudal views along with computer-aided detection (CAD). Digital breast tomosynthesis is performed in implant-displaced craniocaudal and implant-displaced mediolateral oblique views along with computer-aided detection (CAD). Synthesized 2D images are generated from the tomosynthesis. FINDINGS: BREAST COMPOSITION: There are scattered areas of fibroglandular density. BILATERAL BREASTS: Bilateral retropectoral silicone implants appear mammographically intact. No significant masses, suspicious calcifications or other abnormalities are seen in either breast. MM/MM tomosynthesis screen imp BI IMPRESSION: BILATERAL BREASTS: Benign, no mammographic evidence of malignancy. Normal interval follow-up is recommended in 12 months. ASSESSMENT: BI-RADS: Category 2: Benign RECOMMENDATION: Routine annual mammography screening. FOLLOW-UP: 1 year F/U This examination should not preclude the clinical evaluation of a suspicious palpable abnormality. This patient's information was entered into a reminder system with a target due date for their next mammogram. Electronically signed by: Hamilton Horton MD 09/19/2025 09:20 AM [facility]
--- NOTE | ~2025-09-18 | MM_ITS ---
EXAMINATION: DXA BONE DENSITY AXIAL HISTORY: PERIMENOPAUSAL TECHNIQUE: Exterity Dual energy absorptiometry (DEXA) of the lumbar spine, total left hip, and femoral neck was performed. COMPARISON: There are no prior studies for comparison. FINDINGS: The bone mineral density of the lumbar spine is 0.872 g/cm2, corresponding to a T-score of -2.6, and a Z-score of -2.1. This is indicative of osteoporosis. The bone mineral density of the left total hip is 0.807 g/cm2, corresponding to a T-score of -1.6, and a Z-score of -1.2. This is indicative of osteopenia. The bone mineral density of the left femoral neck is 0.733 g/cm2, corresponding to a T-score of -2.2, and a Z-score of -1.5. This is indicative of osteopenia. MM/XR DEXA axial skeleton IMPRESSION: Based on bone mineral density, and according to World Health Organization (WHO) criteria, the diagnosis is consistent with osteoporosis. Statistically, 68% of repeat scans fall within 1 SD (+/- 0.010 g/cm2 for AP spine L1-L4) and 1 SD (+/- 0.012 g/cm2 for femur total) FRAX is a trademark of the [employer] [place] [employer] Met[employer], a World Health Organization (WHO) Collaborating Center. Electronically signed by: Parish Herrera MD 09/18/2025 01:12 PM [facility]
--- OUTSIDE RECORDS SUMMARY | 2025-09-18 14:33 | XMS_ITS | Encounter Summary ---
Author Organization [facility] Address [address] [place] [id number] Phone Care Team Providers Care Container Repairer Name Role Phone Radha Browning MD Primary Care Provider [phone] Chavez Mojica DO Primary Care Provider Micheal Fitzpatrick MD Primary Care Provider [phone] Chavez Mojica DO Unavailable Reason for Referral * Outpatient Procedure - Closed Specialty Diagnoses / Procedures Referred By Yvonne mena Referred To Contact Diagnoses Cardiac murmur, unspecified Procedures Adult Echo TTE Chavez Mojica DO Phone: tel: fax: [email or web address] Referral ID Status Reason Start Date Expiration Date Visits Re quested Visits Authorized [id number] Closed 12/14/2021 12/14/2022 1 1 Encounter Details Date Type Department Care Team (Late st Contact Info) Description 12/14/2021 Transcribe Orders Virtual Department [address] [place] [address] Chavez Mojica DO [address] [facility] [place] [address] [email or web address] Cardiac murmur, unspecified Social History Tobacco Use Types Packs/Day Years Used Date Smoking Tobacco: Never Smokeless Tobacco: Never Alcohol Use Standard Drinks/Week Comments Yes 0 (1 standard drink = 0.6 oz pur e alcohol) Occasional Comments Unknown Sex and Gender Information Value Date Recorded Sex Assigned at Not on file Legal Sex Female 6:32 PM EST Gender Identity Not on file Sexual Orientation Not on file documented as of this encounter Plan of Treatment Upcoming Encounters Date Type Department Care Team (Late st Contact Info) Description 05/14/2026 4:30 PM EDT Office Visit [facility] [address] [facility], 5[address], [address] [place] [address] Stephanie Rivero MD, PhD [address] [facility] [address] [place] [address] [email or web address] Scheduled Orders Name Type Priority Associated Diagnoses Orde r Schedule Adult Echo TTE Echocardiography Routine Cardiac murmur, unspecified Expected: 12/14/2021, Expires: 12/14/2022 documented as of this encounter Visit Diagnoses Diagnosis Cardiac murmur, unspecified documented in this encounter Care Teams Container Repairer Relationship Specialty Start Date End Date Radha Browning MD [address] [place] [address] PCP - General Family Medicine 09/04/21 10/19/22 Chavez Mojica DO [address] [place] [address] [email or web address] PCP - General Internal Medicine 10/20/22 12/19/23 Micheal Fitzpatrick MD [address] [address] PCP - General Family Medicine 12/20/23 Chavez Mojica DO [address] [facility] [address] [place] [address] [email or web address] Insurance Assigned Provider 06/22/25 documented as of this encounter Additional Source Comments The information contained in this document represents components of the legal health record. It is not the complete legal health record.[facility]
--- OUTSIDE RECORDS SUMMARY | 2025-09-18 14:33 | XMS_ITS | Clinical Summary ---
Author Organization [facility] Prior to 03/16/[address] [place] [address] Care Team Providers Care Fine Craft Artist Name Role Phone Micheal Fitzpatrick MD Primary Care Provider Unava ilable Allergies No known active allergies Medications Medication Sig Dispensed Refills Start Date End Date Status losartan-hydrochlorot hiazide (HYZAAR) 50-12.5 MG per tablet Take 1 tablet by mouth daily. 0 07/17/2024 Active rosuvastatin (CRESTOR) tablet 20 mg Take 2 tablets (40 mg total) by mouth every other day. 0 05/29/2024 Active Wegovy 2.4 MG/0.75ML SOAJ subcutaneous auto-injector Inject 0.75 mL (2.4 mg total) under the skin once a week. Patient stated she takes this medication on Mondays 0 07/11/2024 Active valACYclovir (VALTREX) 500 MG tablet Take 1 tablet (500 mg total) by mouth daily as needed. 0 Active aspirin EC 81 MG tablet Take 1 tablet (81 mg total) by mouth every night at bedtime. 0 Active Active Problems Problem Noted Date Diagnosed Date Coronary artery disease 08/16/2024 Gestational diabetes mellitus (GDM), antepartum 08/16/2024 Class 2 severe obesity due t o excess calories with serious comorbidity and body mass index (BMI) of 35.0 to 35.9 in adult 08/16/2024 Essential hypertension, benign 08/16/2024 Mixed hyperlipidemia 08/16/2024 Family History Medical History Relation Name Comments Lymphoma Brother Cancer Father Diet at age of 78, had mesothelioma, prostate and pancreatic cancer Hypertension Father Alzheimer's disease Mother at age of 77. Heart failure Mother Hypertension Sister Relation Name Status Comments Brother Father Mother Sister Social History Tobacco Use Types Packs/Day Years Used Date Smoking Tobacco: Never Passive Smoke Exposure: Past Smokeless Tobacco: Never Alcohol Use Standard Drinks/Week Comments Yes 0 (1 standard drink = 0.6 oz pur e alcohol) socially Sex and Gender Information Value Date Recorded Sex Assigned at Female 07/24/2024 8:49 AM EDT Gender Identity Not on file Sexual Orientation Not on file Job Start Date Occupation Industry Not on file Not on file Not on file Last Filed Vital Signs Vital Sign Reading Time Taken Comments Blood Pressure 122/78 08/16/2024 12:37 PM EDT Pulse 87 08/16/2024 12:37 PM EDT Temperature 37.1 C (98.7 F) 07/27/2024 9:28 AM EDT Respiratory Rate 19 07/27/2024 1:00 PM EDT Oxygen Saturation 96% 08/16/2024 12:37 PM EDT Inhaled Oxygen Concentration - - Weight 90.7 kg (200 lb) 08/16/2024 12:37 PM EDT Height 167.6 cm (5' 6 ) 08/16/2024 12:37 PM EDT Body Mass Index 32.28 08/16/2024 12:37 PM EDT Plan of Treatment Health Maintenance Due Date Last Done Comments Hepatitis C Screening 1963 Depression Screening 1975 BMI Counseling 1981 Preventative Health Evaluation 1981 Cervical Cancer Screening (Pap Smear) 1984 Colon Cancer Screening (Colonoscopy) 2008 Breast Cancer Screening (Mammogram) 2013 Shingrix-Zoster Vaccine (1 of 2) 2013 COVID-19 Vaccine ( season) 2025 01/03/2022, 08/06/2021, 01/03/2021, Additional history exists Influenza Vaccine (#1) 2025 07/28/2021 DTap / Tdap / Td (2 - Td or Tdap) 12/19/2033 12/20/2023 RSV Adult > 60+ Yrs or (1 - 1-dose 75+ series) 2038 Hepatitis B Vaccines Aged Out No long er eligible based on patient's age to complete this topic Pneumococcal Vaccine Aged Out No long er eligible based on patient's age to complete this topic RSV Ped < 20 months Aged Out No longe r eligible based on patient's age to complete this topic Advance Directives For more information, please contact: [phone] Documents on File Type Date Recorded Patient Cotton Roll Packer Expl anation Advance Directive and Living Will 07/27/2024 Advance Directive and Living Will 07/27/2024 Latest Code Status on File Code Status Date Activated Date Inactivated Comments Full Code 07/27/2024 11:06 AM 07/27/2024 7:35 PM Th is code status was ascertained in the following way: discussion with patient . Code Status History Code Status Date Activated Date Inactivated Comments Full Code 07/27/2024 9:01 AM 07/27/2024 11:06 AM Th is code status was ascertained in the following way: per written order . Care Teams Fine Craft Artist Relationship Specialty Start Date End Date Micheal Fitzpatrick MD PCP - General Family Medicine 07/24/24
--- OUTSIDE RECORDS SUMMARY | 2025-09-18 14:33 | XMS_ITS | Clinical Summary ---
Author Organization [facility] Address [address] [place] [address] Care Team Providers Care Bridge Design Engineer Name Role Phone Micheal Fitzpatrick MD Primary Care Provider [phone] Allergies No known active allergies Medications aspirin 81 mg EC tablet Take 1 tablet (81 mg total) by mouth every night at bedtime. Active losartan-hydroC HLOROthiazide (HYZAAR) 50-12.5 mg per tablet Take 1 tablet by mouth 1 (one) time each day. 4 Active rosuvastatin (CRESTOR) 20 mg tablet Take 2 tablets (40 mg total) by mouth every other day. 4 Active semaglutide (Wegovy) 2.4 mg/0.75 mL injection pen Inject 0.75 mL (2.4 mg total) under the skin once a week. Patient stated she takes this medication on Mondays 4 Active valACYclovir (VALTREX) 500 mg tablet Take 1 tablet (500 mg total) by mouth daily as needed. Active Active Problems Problem Noted Date Diagnosed Date Coronary artery disease 08/16/2024 Essential hypertension, benign 08/16/2024 Gestational diabetes mellitus (GDM), antepartum 08/16/2024 Mixed hyperlipidemia 08/16/2024 Class 2 severe obesity due t o excess calories with serious comorbidity and body mass index (BMI) of 35.0 to 35.9 in adult 08/16/2024 Immunizations Immunization Administration Dates Next Due Virtual Web SARS-CoV-2 COVID-19, mRNA, LNP-S, preservative free 01/03/2021,12/13/2020 Surgical History Surgery Date Site/Laterality Comments OTHER SURGICAL HISTORY PROCEDURE:COMBINED AUGMENTATION MAMMAPLASTY AND ABDOMINOPLASTY CARPAL TUNNEL RELEASE Bilateral PROCEDURE:CARPAL TUNNEL RELEASE APPENDECTOMY PROCEDURE:APPENDECTOMY EXPLORATORY LAPAROTOMY PROCEDURE:EXPLORATORY LAPAROTOMY CARDIAC CATHETERIZATION 07/27/2024 N/A PROCEDURE:CARDIAC CATHETERIZATION;COMMENT:Procedure: LEFT HEART CATHETERIZATION PCI; Surgeon: Maurilio Reza DO; Location: [facility] C[facility]IAC F[facility] PAINTER; Service: Cardiology; Laterality: N/A; CARDIAC CATHETERIZATION 07/27/2024 N/A PROCEDURE:CARDIAC CATHETERIZATION;COMMENT:Procedure: CORONARY ANGIOGRAPHY; Surgeon: Maurilio Reza DO; Location: [facility] CARDIAC FACE PAINTER; Service: Cardiology; Laterality: N/A; Medical History Medical History Date Comments Hypertension DX:Hypertension Hyperlipidemia DX:Hyperlipidemi a Obesity DX:Obesity Gestational diabetes DX:Gestatio nal diabetes Heart murmur, systolic DX:Heart murmur, systolic Aortic valve stenosis DX:Aortic valve stenosis Herpes labialis DX:Herpes labial is Vitamin D deficiency DX:Vitamin D deficiency Osteoarthritis DX:Osteoarthriti s Diabetes mellitus, type II ( [facility] V24, [facility] V28) DX:Diabetes mellitus, type I I ([facility]) Social History Tobacco Use Types Packs/Day Years Used Date Smoking Tobacco: Never Smokeless Tobacco: Never Alcohol Use Standard Drinks/Week Comments Yes 0 (1 standard drink = 0.6 oz pur e alcohol) Comments Unknown Sex and Gender Information Value Date Recorded Sex Assigned at Not on file Legal Sex Female 6:52 PM EDT Gender Identity Not on file Sexual Orientation Not on file Obstetrics History Last Filed Vital Signs Vital Sign Reading [...] Health Maintenance Due Date Last Done Comments Breast Cancer Screening 1963 Colorectal Cancer Screening: Colonoscopy 1963 Cervical Cancer Screening: P ap Smear 1984 Pneumococcal Vaccine: 50+ Years (1 of 1 - PCV) 2013 RSV Immunization Adult Patients (1 - Risk 50-74 years 1-dose series) 2013 Zoster Vaccines (1 of 2) 2013 Cholesterol Screening (Lipid Panel) 08/12/2024 HIV Screening 08/12/2024 Hepatitis C Screening 08/12/2024 Social Influencers of Health Screening 08/12/2024 Depression Screening 10/17/2024 COVID-19 Vaccine (3 - 2024-2 6 season) 2025 01/03/2021, 12/13/2020 Influenza Vaccine (#1) 2025 07/28/2021 Hypertension/CHF/CAD Annual BMP Blood Test 07/19/2025 07/19/2024, 07/19/2024, 07/19/2024 DTaP,Tdap,and Td Vaccines (2 - Td or Tdap) 12/19/2033 12/20/2023 HIB Vaccines Aged Out No longer eligi ble based on patient's age to complete this topic HPV Vaccines Aged Out No longer eligi ble based on patient's age to complete this topic Hepatitis A Vaccines Aged Out No long er eligible based on patient's age to complete this topic Hepatitis B Vaccines Aged Out No long er eligible based on patient's age to complete this topic IPV Vaccines Aged Out No longer eligi ble based on patient's age to complete this topic MMR Vaccines Aged Out No longer eligi ble based on patient's age to complete this topic Meningococcal ACWY Vaccine Aged Out N o longer eligible based on patient's age to complete this topic Meningococcal B Vaccine Aged Out No l onger eligible based on patient's age to complete this topic RSV Immunization Patients Under 20 months Aged Out No longer eligible b ased on patient's age to complete this topic Varicella Vaccines Aged Out No longer eligible based on patient's age to complete this topic Procedures Procedure Name Priority Date/Time Associated Diagnosis Comments ANNUAL BMP BLOOD TEST Routine 07/19/2024 from Last 3 Months or Most Recently Relevant to Health Maintenance Results * Annual BMP Blood Test (07/19/2024) Annual BMP Blood Test abstracted us Historical Provider HEALTH MAINTENANCE Final Result from Last 3 Months or Most Recently Relevant to Health Maintenance Insurance [facility] Advance Directives Documents on File Type Date Recorded Patient Machine Trimmer Expl anation Health Care Decision (hx) 07/27/2024 ADVANCE DIRECTIVE AN D LIVING WILL Health Care Decision (hx) 07/27/2024 ADVANCE DIRECTIVE AN D LIVING WILL Care Teams Bridge Design Engineer Relationship Specialty Start Date End Date Micheal Fitzpatrick MD PCP - General 07/30/24
--- OUTSIDE RECORDS SUMMARY | 2025-09-18 14:33 | XMS_ITS | Patient Health Record ---
Author Organization [facility] Address [address] [place] [address] Care Team Providers Care Crop And Soil Technician Name Role Phone Polo Powell Primary Care Provider [phone] Reason For Referral No Information Medications Medication SIG (Take, Route, Fr equency, Duration) Notes Start Date End Date Status Vitamin D 400 UNIT 1 capsule Orally Onc e a day; Duration: 30 day(s) Active Adipex-P 37.5 MG 1/2 tablet Orally 5 days/week Active Vicodin ES 7.5-750 MG 1 tablet as needed for pain Orally every 6 hrs 11/20/2010 Active Valtrex 500 MG 1 tablet Orally prn; Duration: 10 day(s) Active predniSONE 10 MG 1 tablet with food o r milk Orally Once a day; Duration: 20 day(s) 11/20/2010 Active Plan Of Treatment No Information Insurance Providers Payer Name Payer Address Payer Phone Subscriber Number Group Number Insured Name Patient Relationship to Insured Coverage Start Date Coverage End Date [employer] [address] [address] [place] [address] [phone] [id number] Alia Marie Self - patient is the insured Medical (General) History Medical History History ICD Code HSV1 Seasonal allergies Surgical History Surgery Date(Month/Year) B/L CT release Appendectomy Hospitalization History Reason Date(Month/Year) See above surgical hx
--- OUTSIDE RECORDS SUMMARY | 2025-09-18 14:33 | XMS_ITS | Encounter Summary ---
Author Organization [facility] Address [address] [place] [address] Phone Care Team Providers Care In Flight Technician Name Role Phone Micheal Fitzpatrick MD Primary Care Provider [phone] MassielsowmyaChavez DO Unavailable Encounter Details Date Type Department Care Team (Late Contact Info) Description 11/28/2024 Procedure Pass [facility] [address] [place] [address] Social History Tobacco Use Types Packs/Day Years Used Date Smoking Tobacco: Never Smokeless Tobacco: Never Alcohol Use Standard Drinks/Week Comments Yes 2 (1 standard drink = 0.6 oz pur e alcohol) Occasional Education Answer Date Recorded Are you interested in more education? Not on shayy e 02/12/2023 Are you concerned about learning? Not on file 02/12/2023 No 02/12/2023 No 02/12/2023 Digital Access Answer Date Recorded No 03/13/2023 No 03/13/2023 Reliable internet access at home? Not on file 03/13/2023 Device with a working camera? Not on file Comments Unknown Sex and Gender Information Value Date Recorded Sex Assigned at Not on file Legal Sex Female 6:32 PM EST Gender Identity Not on file Sexual Orientation Not on file documented as of this encounter Plan of Treatment Upcoming Encounters Date Type Department Care Team (Late st Contact Info) Description 05/14/2026 4:30 PM EDT Office Visit [facility] [address] [facility], 5th Floor, [address] [place] [address] Stephanie Rivero MD, PhD [address] [place] [address] [email or web address] documented as of this encounter Visit Diagnoses Not on filedocumented in this encounter Care Teams In Flight Technician Relationship Specialty Start Date End Date Micheal Fitzpatrick MD Manuelaurelio Guerra [address] [address] PCP - General Family Medicine 12/20/23 Chavez Mojica DO [address] [place] [address] [place] [address] [email or web address] Insurance Assigned Provider 06/22/25 documented as of this encounter Additional Source Comments The information contained in this document represents components of the legal health record. It is not the complete legal health record.[facility]
--- OUTSIDE RECORDS SUMMARY | 2025-09-18 14:33 | XMS_ITS ---
Author Name [facility] Organization Unknown Results Test Name/Text Value Interpretation Date Range Source GLUCOSE BLDC GLUCOMTR MCNC 91.0 mg/dL Normal 07/27/2024 7 0 - 199 [facility]AN History of Medication Use Medication Directions Dispensed Refills Start Date End Date Stat us losartan-hydroCHLOROt hiazide (HYZAAR) 50-12.5 mg per tablet Take 1 tablet by mouth 1 (one) time each day. 07/17/2024 active semaglutide (Wegovy) 2.4 mg/0.75 mL injection pen Inject 0.75 mL (2.4 mg total) under the skin once a week. Patient stated she takes this medication on Mondays07/11/2024 active rosuvastatin (CRESTOR) 20 mg tablet Take 2 tablets (40 mg total) by mouth every other day. 05/29/2024 active aspirin 81 mg EC tablet Take 1 tablet (81 mg total) by mouth every night at bedtime. active valACYclovir (VALTREX) 500 mg tablet Take 1 tablet (500 mg total) by mouth daily as needed. active Problems Problem Status Onset Date Problem Type Date of Resoluti on Source Gestational diabetes mellitus (GDM), antepartum active 2024-08-16 ProblemAct [facility] Mixed hyperlipidemia active 2024-08-16 ProblemAct [facility] Class 2 severe obesity due to excess calories with serious comorbidity and body mass index (BMI) of 35.0 to 35.9 in adult active 2024-08-16 ProblemAct [facility] Essential hypertension, benign active 2024-08-16 ProblemAct [facility] Coronary artery disease active 2024-08-16 ProblemAct [facility] Immunizations Vaccine Date Source Lot Number Status blur Group SARS-CoV-2 COVID-19, mRNA, LNP-S, preservative free 01/03/2021 WIL[facility]O [id number] completed Pfizer SARS-CoV-2 COVID-19, mRNA, LNP-S, preservative free 12/13/2020 WIL[facility]O [id number] completed Encounters Encounter Type Encounter Reason Primary Diagnosis Location Date Ambulatory Atherosclerotic hear t disease of [place] coronary artery without angina pectoris Atherosclerotic heart disease of [place] coronary artery without angina pectoris [facility] [place] Amb[place] Acute coronary thrombosis not resulting in myocardial infarction Acute coronary thrombosis not resulting in myocardial infarction [facility] 07/19/2024 Care Team Organization Name Specialty Phone Email Start Date End Da [place] [facility] [place]2024 [facility] 07/21/2024
--- OUTSIDE RECORDS SUMMARY | 2025-09-18 14:33 | XMS_ITS | Encounter Summary ---
Author Organization [facility] Address [address] [place] [address] Phone Care Team Providers Care Cell Room Supervisor Name Role Phone Micheal Fitzpatrick MD Primary Care Provider [phone] Chavez Mojica DO Unavailable Encounter Details Date Type Department Care Team (Latest Contact Info) Description 11/28/2024 Transcribe Orders [facility] [address] [facility], 5th [address], [address] [place] [address] Stephanie Rivero MD, PhD [address] [place] [address] [email or web address] Coronary artery disease involving [place] coronary artery of [place] heart without angina pectoris (Primary Dx) Social History Tobacco Use Types Packs/Day Years [...] Description 05/14/2026 4:30 PM EDT Office Visit [facility] [address] [facility], 5th Floor, [address] [place] [address] Stephanie Rivero MD, PhD [address] [place] [address] [email or web address] documented as of this encounter Procedures Procedure Name Priority Date/Time Associated Diagnosis Comments OUTSIDE CARDIAC CATHETERIZATION Routine 11/28/2024 5:03 PM EST Coronary artery disease involving [place] coronary artery of [place] heart without angina pectoris documented in this encounter Results * Outside Cath Study (11/28/2024 5:03 PM EST) Other Narrative SYSTEMGENERATED, DOCUMENTATION - 11/28/2024 5:03 PM EST Outside Images for comparison purposes only. us Stephanie Rivero MD, PhD CV CARDIAC CATH ORDERABLES Final Result documented in this encounter Visit Diagnoses Diagnosis Coronary artery disease involving [place] coronary artery of [place] heart without angina pectoris- Primary documented in this encounter Care Teams Cell Room Supervisor Relationship Specialty Start Date End Date Micheal Fitzpatrick MD [address] [place] [address] [address] [place] [address] PCP - General Family Medicine 12/20/23 Chavez Mojica DO [address] [facility] [place] [address] [place] [address] [email or web address] Insurance Assigned Provider 06/22/25 documented as of this encounter Additional Source Comments The information contained in this document represents components of the legal health record. It is not the complete legal health record.[facility]
--- OUTSIDE RECORDS SUMMARY | 2025-09-18 14:33 | XMS_ITS | Encounter Summary ---
Author Organization [facility] Address [address] [place] [address] Phone Care Team Providers Care Etl Programmer Name Role Phone Radha Browning MD Primary Care Provider [phone] Chavez Mojica DO Primary Care Provider [phone] Micheal Fitzpatrick MD Primary Care Provider [phone] Chavez Mojica DO Unavailable Encounter Details Date Type Department Care Team (Late st Contact Info) Description 03/04/2022 Ancillary Orders [facility],Outside Imaging [address] [place], [place] [id number] System, Provider Not In, PhD Partners [address] [address] Social History Tobacco Use Types Packs/Day Years [...] Encounters Date Type Department Care Team (Late Contact Info) Description 05/14/2026 4:30 PM EDT Office Visit [facility] [address] [facility], 5th [address], [address] [place], [place] [id number] Stephanie Rivero MD, PhD [address] [place] [address] [email or web address] documented as of this encounter Results * US Chest Outside (No Interpretation) (02/27/2022 12:00 AM EDT) Narrative SYSTEMGENERATED, DOCUMENTATION - 03/04/2022 1:49 PM EDT This study is for PACS storage only and not for interpretation. us Provider Not In System PhD IMG OUTSIDE IMAGING W /OUT INTERPRETATION Final Result documented in this encounter Visit Diagnoses Not on filedocumented in this encounter Care Teams Etl Programmer Relationship Specialty Start Date End Date Radha Browning MD [address] [place] [address] PCP - General Family Medicine 09/04/21 10/19/22 Chavez Mojica DO [address] [place] [address] [email or web address] PCP - General Internal Medicine 10/20/22 12/19/23 Micheal Fitzpatrick MD [address] [facility] [address] [address] PCP - General Family Medicine 12/20/23 Chavez Mojica DO [address] [place] [address] [email or web address] Insurance Assigned Provider 06/22/25 documented as of this encounter Additional Source Comments The information contained in this document represents components of the legal health record. It is not the complete legal health record.[facility]
--- OUTSIDE RECORDS SUMMARY | 2025-09-18 14:33 | XMS_ITS | Clinical Summary ---
Author Organization [facility] Address [address] [address] Phone Care Team Providers Care Sap Bpc Architect Name Role Phone Micheal Fitzpatrick MD Primary Care Provider [phone] Chavez Mojica DO Unavailable Allergies No known active allergies Medications losartan-hydroCHLO ROthiazide (HYZAAR) 50-12.5 mg per tablet Take 1 tablet by mouth daily. 08/02/20 21 Active rosuvastatin (CRESTOR) 5 MG tablet Take 40 mg by mouth daily. 08/02/20 21 Active sulfacetamide (BLEPH-10) 10 % ophthalmic solution Place 1 drop into the left eye 4 (four) times a day. 15 mL 09/04/20 21 Active Additional Information Patient not taking.Reported on 12/20/2023 WEGOVY 2.4 mg/0.75 mL subcutaneous pen injection 12/11/19 24 Active valACYclovir (VALTREX) 500 MG tablet 500 mg. Active cholecalciferol, vitamin D3, (VITAMIN D3) 10 mcg (400 unit) capsule Active multivitamins capsule Active magnesium gluconate (MAGONATE) 500 mg (27 mg elemental) Tab Take 500 mg by mouth daily. 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 90 tablet 3 11/28/19 25 Active semaglutide (OZEMPIC) 2 mg/dose (8 mg/3 mL) subcutaneous injection pen Inject 2 mg under the skin every 7 days. Active Active Problems Problem Noted Date Diagnosed Date Mixed hyperlipidemia 11/28/2024 Assessment & Plan (11/28/2024 8:25 AM EST): LDL was 55 on rosuva 40 mg. P: add Zetia 10 mg -> repeat lipid panel in 3 months. Target LDL would be < 40. Obesity (BMI 30-39.9) 11/28/2024 Assessment & Plan (03/20/2025 8:12 AM EDT): Wegovy was switched to Ozempic for an insurance reason. She has lost 60 lbs over the past 2 years. Assessment & Plan (11/28/2024 8:37 AM EST): She lost 60 lbs over the past 2 years on Wegovy. Atherosclerosis of ruby co ronary artery of ruby heart with angina pectoris 11/27/2024 Overview (12/29/2024): 08/09 Cath ([facility]): LAD 40%, Dx 50%, RCA COLOR WEIGHER w collaterals 12/11 TTE: EF 69% 01/08 ETT: 10 METS. No ischemia Assessment & Plan (03/20/2025 8:08 AM EDT): No angina. She goes to the gym for 45 min x3/week and does pilates for 1 hour x1/week. Assessment & Plan (11/28/2024 8:33 AM EST): In 08/09 she underwent cardiac cath following CCTA at [facility] for elevated CAC score and inflammatory markers. She was asymptomatic. She is very active: personal training for 45 min x3/week, does pilates for one hour x1/week and plays pickle ball for 1 hour x1/week. Angio showed LAD 40%, Dx 50%, RCA COLOR WEIGHER w collaterals. P: ETT MIBI Immunizations Immunization Administration Dates Next Due COVID-19 (Pre-08/08) Pfizer Vaccine, mRNA, PF ,12/13/2020 Influenza Quadrivalent Preservative Free IM 07/17 Tdap 12/20/2023 Family History Medical History Relation Comments Coronary artery disease Maternal Uncle Relation Status Comments Maternal Uncle Alive Social History Tobacco Use Types Packs/Day Years Used Date Smoking Tobacco: Never Smokeless Tobacco: Never Tobacco Cessation:Counseling Given: Not Answered Alcohol Use Standard Drinks/Week Comments Yes 2 [...] on file Sexual Orientation Not on file Last Filed Vital Signs Vital Sign Reading Time Taken Comments Blood Pressure 118/82 03/20/2025 7:48 AM EDT Pulse 69 03/20/2025 7:48 AM EDT Temperature 36.7 C (98.1 F) 12/20/2023 4:28 PM EST Respiratory Rate 18 12/20/2023 4:28 PM EST Oxygen Saturation 99% 12/28/2024 10:31 AM EDT Inhaled Oxygen Concentration - - Weight 89.8 kg (198 lb) 03/20/2025 7:48 AM EDT Height 167.6 cm (5' 6 ) 03/20/2025 7:48 AM EDT Body Mass Index 31.96 03/20/2025 7:48 AM EDT Plan of Treatment Upcoming Encounters Date Type Department Care Team (Late st Contact Info) Description 05/14/2026 4:30 PM EDT Office Visit [facility] [address], [address] [place] [address] Stephanie Rivero MD, PhD [address] [facility] [address] [place] [address] [email or web address] Health Maintenance Due Date Last Done Comments DEPRESSION SCREENING 1975 HEPATITIS C SCREENING 1981 HIV ONE-TIME SCREENING (18-6 5 YEARS) 1981 PNEUMOCOCCAL VACCINES (50+ years) (1 of 2 - PCV) 1982 PAP SMEAR 1984 MAMMOGRAM 2003 COLOGUARD 2008 COLONOSCOPY 2008 COLORECTAL CANCER SCREENING 2008 FIT TEST 2008 FOBT 2008 SIGMOIDOSCOPY 2008 VIRTUAL COLONOSCOPY 2008 ZOSTER VACCINES (1 of 2) 2013 DIABETIC EYE EXAM 11/20/2024 INFLUENZA VACCINE (#1) 2025 07/28/2021 HEMOGLOBIN A1C 05/20/2025 11/20/2024 COVID-19 VACCINE (4 - 2024-2 6 season) 2025 07/28/2021, 01/03/2021, 12/13/2020 BLOOD PRESSURE 09/19/2025 03/20/2025 CREATININE LEVEL 11/20/2025 11/20/2024 POTASSIUM LEVEL 11/20/2025 11/20/2024 LIPID PANEL 03/14/2026 03/14/2025, 11/20/2024 Adult Td,Tdap Booster 12/19/2033 12/20/2023 RSV VACCINE (1 - 1-dose 75+ series) 2038 SMOKING STATUS SCREENING (On ce After 26 Yrs) Completed 11/28/2024 HEPATITIS A VACCINES Aged Out No long er eligible based on patient's age to complete this topic HIB VACCINES Aged Out No longer eligi ble based on patient's age to complete this topic MENINGOCOCCAL VACCINES (ACWY) Aged Out No longer eligible based on patient's age to complete this topic MENINGOCOCCAL VACCINES (B) Aged Out N o longer eligible based on patient's age to complete this topic Medical Devices Not on file Procedures Procedure Name Priority Date/Time Associated Diagnosis Comments LIPID PANEL Routine 03/14/2025 7:37 AM EDT Mixed hyperlipidemia HEMOGLOBIN A1C Routine 11/20/2024 8:16 AM EST Inadequately controlled diabetes mellitus Obesity, unspecified class, unspecified obesity type, unspecified whether serious comorbidity present Hyperlipidemia, unspecified hyperlipidemia type Essential hypertension, malignant COMPREHENSIVE METABOLIC PANEL (CMP) Routine 11/20/2024 8:16 AM EST Inadequately controlled diabetes mellitus Obesity, unspecified class, unspecified obesity type, unspecified whether serious comorbidity present Hyperlipidemia, unspecified hyperlipidemia type Essential hypertension, malignant from Last 3 Months or Most Recently Relevant to Health Maintenance Results * (ABNORMAL) Lipid panel (03/14/2025 7:37 AM EDT) HDL 75 mg/dL [facility] Comment: Interpretation <40 mg/dL: Low HDL cholesterol (major risk factor for CHD) Greater than or equal to 60 mg/dL: High HDL cholesterol ( negative risk factor for CHD) HDL - cholesterol is affected by a number of factors, e.g. smoking, excerise, hormones, sex and age. CHOLESTEROL 138 0 - 240 mg/dL [facility] TRIGLYCERIDES 116 30 - 160 mg/dL [facility] LDL 40(L) 50 - 129 mg/dL [facility] Comment: LDL levels in terms of risk for coronary heart disease: <100 mg/dL: Optimal 100-129 mg/dL: Near or above optimal 130-159 mg/dL: Borderline high 160-189 mg/dL: High >190 mg/dL: Very High CARDIAC RISK RATIO 1.8(L) 3.3 - 4.4 [facility] Blood 03/14/2025 7:37 AM EDT 03/14/2025 7:39 AM EDT us Stephanie Rivero MD, PhD LAB BLOOD BKR ORDERABLES F inal Result [address] [address] * Comprehensive metabolic panel (11/20/2024 8:16 AM EST) SODIUM 138 133 - 146 mmol/L [facility] POTASSIUM 3.8 3.3 - 5.1 mmol/L [facility] CHLORIDE 102 96 - 108 mmol/L [facility] CO2 28 21 - 35 mmol/L [facility] BUN 18 6 - 19 mg/dL [facility] CREATININE 0.60 0.5 - 1.5 mg/dL [facility] GLUCOSE 97 70 - 99 mg/dL [facility] ALBUMIN 3.9 3.9 - 4.8 g/dL [facility] TOTAL PROTEIN 6.9 6.5 - 8.0 g/dL [facility] CALCIUM 9.4 8.4 - 10.3 mg/dL [facility] ALKALINE PHOSPHATASE 79 39 - 117 U/L [facility] TOTAL BILIRUBIN 0.8 0.0 - 1.2 mg/dL [facility] AST 20 0 - 37 U/L [facility] ALT 15 0 - 40 U/L [facility] GLOBULIN 3.0 1 - 4.8 g/dL [facility] EGFR 102 >59 mL/min/1.7 3m2 [facility] Comment:Estimated glomerular filtration rate calculated using the CKD-EPI refit equation. ANION GAP 12 10 - 20 mmol/L [facility] Blood 11/20/2024 8:16 AM EST 11/20/2024 8:19 AM EST Micheal Fitzpatrick MD LAB BLOOD BKR ORDERABLES Final Result Performing Organization Address City/[facility] Co de Phone Number [address] [address] * Hemoglobin A1c (11/20/2024 8:16 AM EST) HEMOGLOBIN A1C 5.1 4.3 - 5.8 % [facility] Blood 11/20/2024 8:16 AM EST 11/20/2024 8:19 AM EST Micheal Fitzpatrick MD LAB BLOOD BKR ORDERABLES Final Result Performing Organization Address [facility]/ZIP Co de Phone Number [address] [phone] from Last 3 Months or Most Recently Relevant to Health Maintenance Insurance BLUE CROSS OUT OF STATE PPO [employer] OUT OF STATE PPO [employer] OUT OF STATE PPO [employer] OUT OF STATE PPO BL[employer] OUT OF STATE PPO [employer] OUT OF STATE PPO [employer] OUT OF STATE PPO [employer] [place] OUT OF STATE PPO [facility] OUT OF STATE PPO Member Subscriber Plan / Payer (Ef fective 2023-Present) Name:Alia Teran Relation to Subscriber:Spouse Name:ELPIDIO TERAN Date of :1971 (Home) Address: [address] [place] [address] Payer ID:[id number] (NAIC) Type:PPO Address: [address] [place] [id number] Care Teams Sap Bpc Architect Relationship Specialty Start Date End Date Micheal Fitzpatrick MD [address] [place] [id number] PCP - General Family Medicine 12/20/23 Chavez Mojica DO [address] [place] [address] Insurance Assigned Provider 06/22/25 Additional Source Comments The information contained in this document represents components of the legal health record. It is not the complete legal health record.[facility]
== END 2025-09-18 12:16 | disposition home or self-care (01) ==
LOC: HO.MAMMO 12:15
PROVIDERS: PCP Family Medicine; Visit Provider Family Medicine
DX: Z12.31 Encounter for screening mammogram for malignant neoplasm of breast (principal); N95.8 Other specified menopausal and perimenopausal disorders
CPT/HCPCS: 77063; 77067; 77080

== ENCOUNTER → 2025-09-18 12:38 | Outpatient (BNV) | payer BC, SELFPAY | PROVIDERS: PCP Family Medicine; Visit Provider Radiology Diagnostic Radiology | DX: Z12.31 Encounter for screening mammogram for malignant neoplasm of breast (principal) | CPT/HCPCS: 77063; 77067; 77080 ==